=== PATIENT | male | born 1965 ===

== ENCOUNTER 2017-04-27 09:43 | Emergency (ER) | payer OTHER ==
[2017-04-27 09:43] VITALS: BMI 31.6
--- NOTE | 2017-04-27 10:33 | ED PDOC ---
HPI: General Adult Time Seen by Provider: 04/27/17 10:19 Chief Complaint (Nursing): Flu-like Symptoms Chief Complaint (Provider): flu like symptoms History Per: Patient History/Exam Limitations: no limitations Onset/Duration Of Symptoms: Days (2) Current Symptoms Are (Timing): Still Present Severity: Mild Additional Complaint(s): 51yo male c/o flu like symptoms of malaise, headache, fever, dry cough, sore throat and fatigue x2 days. Denies chest pain, SOB, neck pain, rash or syncope. States work colleague diagnosed w flu and he thinks he contracted from him. Past Medical History Reviewed: Historical Data, Nursing Documentation, Vital Signs Vital Signs: Last Vital Signs Temp 98.8 F 04/27/17 10:33 Pulse 78 04/27/17 10:49 Resp 14 04/27/17 10:49 BP 154/93 H 04/27/17 10:49 Pulse Ox 100 04/27/17 10:49 - Medical History PMH: Denies: Arthritis, Asthma, Atrial Fibrillation, CHF, COPD, Diabetes, HTN, Hypercholesterolemia, Chronic Kidney Disease, Seizures - Surgical History Surgical History: Denies: CABG, Pacemaker - Family History Family History: Denies: CAD - Social History Current smoker - smoking cessation education provided: No - Home Medications Home Medications: Ambulatory Orders Medication Instructions Recorded Aspirin [Ecotrin] 81 mg PO DAILY 09/29/16 Clobetasol 0.05% [Temovate CREAM] 0 mg EXT DAILY PRN 09/29/16 Ibuprofen [Motrin Tab] 600 mg PO Q6 PRN #15 tab 04/27/17 Oseltamivir [Tamiflu] 75 mg PO BID #10 cap 04/27/17 - Allergies Allergies/Adverse Reactions: Allergies Allergy/AdvReac Type Severity Reaction Status Date / Time No Known Allergies Allergy Verified 10/06/16 10:53 Review of Systems Constitutional: Positive for: Fever, Chills, Malaise. Negative for: Weight loss ENT: Positive for: Throat Pain. Negative for: Ear Pain, Throat Swelling Cardiovascular: Negative for: Chest Pain Respiratory: Positive for: Cough. Negative for: Shortness of Breath, SOB with Exertion, Wheezing Gastrointestinal: Negative for: Vomiting, Abdominal Pain Genitourinary Male: Negative for: Dysuria Musculoskeletal: Positive for: Other (myalgias). Negative for: Neck Pain, Back Pain Skin: Negative for: Rash, Lesions, Jaundice Neurological: Positive for: Headache, Dizziness. Negative for: Weakness, Numbness Psych: Negative for: Anxiety Physical Exam - Reviewed Nursing Documentation Reviewed: Yes Vital Signs Reviewed: Yes - Physical Exam Appears: Positive for: Well, Non-toxic, No Acute Distress Head Exam: Positive for: ATRAUMATIC, NORMAL INSPECTION, NORMOCEPHALIC Skin: Positive for: Normal Color, Warm, DRY Eye Exam: Positive for: EOMI, Normal appearance, PERRL ENT: Positive for: Pharynx Is (patent with no assymetry), Pharyngeal Erythema. Negative for: Tonsillar Swelling Neck: Positive for: Normal, Painless ROM Cardiovascular/Chest: Positive for: Regular Rate, Rhythm Respiratory: Positive for: Normal Breath Sounds. Negative for: Decreased Breath Sounds, Rales, Rhonchi, Wheezing, Respiratory Distress Gastrointestinal/Abdominal: Positive for: Bowel Sounds, Soft. Negative for: Tenderness Back: Positive for: Normal Inspection Extremity: Positive for: Normal ROM. Negative for: Swelling Neurologic/Psych: Positive for: Alert, Oriented. Negative for: Motor/Sensory Deficits Medical Decision Making Medical Decision Making: classic flu symptoms in patient without comorbidities and no chest pain, SOB or presyncope. Symptoms approaching 48hrs, explained tamiflu indications and may be limited usefullness given almost 2days symptoms work note provided Disposition - Clinical Impression Clinical Impression: Influenza-like symptoms - Patient ED Disposition Is Patient to be Admitted: No Counseled Patient/Family Regarding: Studies Performed, Diagnosis, Need For Followup, Rx Given - Disposition Disposition: Routine/Home Disposition Time: 10:45 Condition: STABLE Additional Instructions: Drink plenty of fluids. Avoid close contact with others as flu is contagious. Return to ER for any difficulty breathing, severe headache, weakness or any concern. Prescriptions: Ibuprofen [Motrin Tab] 600 mg PO Q6 PRN #15 tab PRN Reason: Pain, Moderate (4-7) Oseltamivir [Tamiflu] 75 mg PO BID #10 cap Instructions: Influenza (ED) Forms: [facility] (Hebrew), [facility] ED School/Work Excuse
[2017-04-27 10:40] VITALS: TEMP 98.8; O2SAT 100
[2017-04-27 10:51] VITALS: BP 154/93; PULSE 78; RESP 14
== END 2017-04-27 10:50 | disposition home or self-care (01) ==
LOC: H.ER 09:43
DX: J11.1 Influenza due to unidentified influenza virus with other respiratory manifestations (principal); Z79.82 Long term (current) use of aspirin